=== PATIENT | female | born 1980 ===

== ENCOUNTER 2021-09-24 05:08 | Outpatient (CLI) | payer MEDICAID ==
[2021-09-24 05:32] VITALS: BP 132/80
--- NOTE | 2021-09-24 08:59 | Ultrasound Report ---
US OB BPP wo non-stress, US OB follow up INDICATION: WELL BEING. TECHNIQUE: Transabdominal. COMPARISON: None available. FINDINGS: There is a single intrauterine . Biparietal Diameter = 9.3 cm Head Circumference = 33.6 cm Abdominal Circumference = 32.7 cm Femur Length = 7.5 cm Heart Rate: 145 beats per minute. Estimated Weight in grams (if calculated): 3194 Position: cephalic. Amniotic Fluid Volume: normal Amniotic Fluid Index (JONATHAN) in cm (if calculated): 8.8. Maternal Adnexa: No significant abnormality. Biophysical Profile: breathing movements: 2 movements:2 posture and tone:2 Qualitative amniotic fluid volume: 2 IMPRESSION: 1. Single, living intrauterine with estimated sonographic age of 37 weeks, 5 day(s). 2. Biophysical profile . Signer Name: Chuckie Hernandez MD Signed: 09/24/2021 8:55 AM Workstation Name: [id number]
== END 2021-09-24 09:20 | disposition home or self-care (01) ==
LOC: TRG 05:08 → APU 05:11 → TRG 09:20
PROVIDERS: ATTEND Obstetrics & Gynecology
DX: O09.893 Supervision of other high risk pregnancies, third trimester (principal); Z3A.38 38 weeks gestation of pregnancy
CPT/HCPCS: 59025; 76816; 76819

== ENCOUNTER 2022-03-05 09:22 | Day surgery (SDC) | payer MEDICAID ==
[2022-03-05] MEDS ORDERED: LACTATED RINGERS 1,000 ML ONE (10:01)
[2022-03-05] MEDS ORDERED: LIDOCAINE MPF (2%) 20 MG/1 ML VIAL 5 ML ONE (10:44)
[2022-03-05] MEDS ORDERED: ONDANSETRON 4 MG/2 ML INJ ONE (10:44)
[2022-03-05] MEDS ORDERED: propofoL 200 MG/20 ML VIAL IV ONE (10:44)
[2022-03-05] MEDS ORDERED: HYDROmorphone 1 MG/1 ML INJ ONE (10:44)
[2022-03-05] MEDS ORDERED: dexAMETHasone 20 MG/5 ML VIAL ONE (10:44)
[2022-03-05] MEDS ORDERED: KETOROLAC 30 MG/1 ML INJ ONE (10:44)
[2022-03-05] MEDS ORDERED: ROCURONIUM 50 MG/5 ML INJ IV ONE (10:44)
--- NOTE | 2022-03-05 10:58 | Anesthesia Day of Surgery ---
Anesthesia Day of Surgery - Day of Surgery Patient Examined: Yes Patient H&P Reviewed: Yes Patient is NPO: Yes
--- NOTE | 2022-03-05 10:58 | Anesthesia Consultation ---
Anesthesia Consult and Med Hx Date of service: 03/05/22 - Airway Anesthetic Teeth Evaluation: Good ROM Head & Neck: Adequate Mental/Hyoid Distance: Adequate Mallampati Class: Class II Intubation Access Assessment: Good - Pulmonary Exam CTA: Yes - Cardiac Exam Cardiac Exam: No Murmur - Pre-Operative Health Status ASA Pre-Surgery Classification: ASA3 Proposed Anesthetic Plan: General - Pulmonary Hx Smoking: No Hx Asthma: No COPD: No Hx Pneumonia: No Hx Sleep Apnea: No (QUIANA PRE SCREEN LOW RISK) - Cardiovascular System Hx Hypertension: Yes (X 3 MONTHS- ON RX MED FOR HBP FROM [place]) - Central Nervous System Hx Seizures: No Hx Psychiatric Problems: No - Endocrine Hx Renal Disease: No Hx End Stage Renal Disease: No Hx Non-Insulin Dependent Diabetes: Yes Hx Hypothyroidism: No Hx Hyperthyroidism: No - Hematic Hx Anemia: No Hx Sickle Cell Disease: No - Other Systems Hx Alcohol Use: No Hx Cancer: No
[2022-03-05] MEDS ORDERED: LACTATED RINGERS 1,000 ML IV SCH (11:00)
[2022-03-05] MEDS ORDERED: MIDAZOLAM 2 MG/2 ML INJ IV NR (11:00)
--- NOTE | 2022-03-05 11:03 | Short Stay Summary ---
Short Stay Documentation Date of service: 03/05/22 Narrative H&P: 42-year-old -0-0-3 with undesired fertility. The patient is aware of other contraceptive options and has elected to undergo permanent sterilization. - History Principal diagnosis: Unwanted fertility Past Medical History: diabetes, hypertension Past Surgical History: No surgical history Social history: - Allergies and Medications Current Medications: Allergies No Known Allergies Allergy (Verified 08/25/16 10:53) Home Medications Medication Instructions Recorded Confirmed Last Taken Type Iltux 1 tab PO DAILY 03/03/22 03/03/22 Unknown History diazePAM [Diazepam] 2.5 mg PO DAILY 03/03/22 03/03/22 Unknown History metFORMIN [Glucophage] 500 mg PO BID 03/03/22 03/03/22 Unknown History Active Medications Lactated Ringer's (Lactated Ringers) 1,000 mls @ 100 mls/hr IV DIRECT CHONG Midazolam HCl (Midazolam 2 Mg/2 Ml Inj) 2 mg IV PREOP NR Stop: 03/05/22 23:59 - Physical exam General appearance: no acute distress Integumentary: no rash HEENT: Atraumatic Lungs: Clear to auscultation Breasts: deferred Heart: Regular rate Gastrointestinal: normal Female Genitourinary: deferred - Brief post op/procedure progress note Date of procedure: 03/05/22 Pre-op diagnosis: Unwanted fertility Post-op diagnosis: same Procedure: Laparoscopic bilateral salpingectomy Anesthesia: GETA Surgeon: SUN ORTIZ Estimated blood loss: minimal Pathology: list (Bilateral fallopian tubes) Specimen disposition: to lab Condition: stable - Hospital course Hospital course: The patient was admitted the day of surgery underwent a laparoscopic bilateral salpingectomy. Please see operative note for details of surgery. Her postoperative course was uneventful. - Disposition Condition at discharge: Good Disposition: 01 HOME / SELF CARE / HOMELESS Short Stay Discharge Plan Activity: other (Pelvic rest for 1 week) Diet: regular Additional Instructions: Follow-up is not required Follow-up as needed
[2022-03-05] MEDS ORDERED: BUPIVACAINE/PF (0.5%) 5 MG/1 ML 30 ML VIAL INFILTRATI ONE ×2 (11:19→12:11)
[2022-03-05] MEDS ORDERED: fentaNYL 100 MCG/2 ML INJ ONE (12:09)
--- NOTE | 2022-03-05 12:18 | Operative Report ---
Operative Report Operative Report: Date of surgery: March 05, 2022 Preoperative diagnosis: Unwanted fertility Postoperative diagnosis: Same as above Procedure: Laparoscopy; Bilateral salpingectomy Surgeon: Katja Simmons M.D. Anesthesia: General endotracheal anesthesia Estimated blood loss: Minimal Pathology: Bilateral fallopian tubes Findings: Normal uterus tubes and ovaries Indication: 42-year-old -0-0-3 with undesired fertility Procedure: The patient was taken to the operating room and given general endotracheal anesthesia without complication. The patient is prepped and draped in a normal sterile fashion. A bivalve speculum was placed in the patient's vagina and a single-tooth tenaculum was placed on the anterior lip of the cervix .A uterine acorn manipulator was placed, and the bivalve speculum was then removed. Attention was then turned to the patient's abdomen where a 5 mm infraumbilical skin incision was then made. A Veress needle was placed and peritoneal entry was verified water-filled syringe. Insufflation of the peritoneal cavity was performed with CO2 gas. A 5 mm trocar was placed and the laparoscope was then inserted. The patient was then placed in Trendelenburg. A 7 mm suprapubic skin incision was then made. Under direct visualization a 7 mm trocar was then placed. An additional 5 mm left lateral trocar was also placed. General survey of the patient's abdomen revealed normal uterus tubes and ovaries. The fallopian tube was then followed out to the fimbriated end. The LigaSure device was used in order to coagulate and transect the mesosalpinx. The fallopian tube was excised from the adnexa. The fallopian tube was removed through the 7 mm trocar. This was performed on the contralateral side as well. The trocars were then removed. The pneumoperitoneum was then released. The 5 mm trocar laparoscope was then removed. The skin incisions were then closed wi th 4-0 Monocryl. The incisions were injected with quarter percent Marcaine. Dressings were applied to the incision. The vaginal instruments were then removed atraumatically. Then successfully extubated and taken to the recovery room. All sponge laps and needle counts were correct x2.
[2022-03-05] MEDS ORDERED: oxyCODONE /ACETAMINOPHEN 5-325MG TAB PO PRN (13:30)
[2022-03-05 13:43] VITALS: BP 138/56
--- NOTE | 2022-03-05 14:20 | Post Anesthesia Evaluation ---
- Post Anesthesia Evaluation Patient Participated: Yes Airway Patent: Yes Stable Respiratory Function: Yes Nausea/Vomiting: No Temp > 96.8F: Yes Pain Manageable: Yes Adequeate Hydration: Yes Anesthesia Complications: No
== END 2022-03-05 09:23 | disposition home or self-care (01) ==
LOC: OR 09:22
PROVIDERS: ATTEND Obstetrics & Gynecology
DX: Z30.2 Encounter for sterilization (principal); G43.909 Migraine, unspecified, not intractable, without status migrainosus; I10 Essential (primary) hypertension; E11.9 Type 2 diabetes mellitus without complications; F41.9 Anxiety disorder, unspecified; Z83.3 Family history of diabetes mellitus; Z79.899 Other long term (current) drug therapy; Z98.890 Other specified postprocedural states
CPT/HCPCS: 58670; 81025; 82962; 88302; J1100; J1170; J1885; J2250; J2405; J2704; J3010; J3490; J7120